=== PATIENT | female | born 1990 | race Two or more races ===

== ENCOUNTER 2016-09-22 16:31 | Emergency (ER) | payer BC ==
[~2016-09-22] VITALS: Ht 157.5 cm; Wt 86.4 kg
[2016-09-22 16:33] VITALS: BP 117/75
[2016-09-22] MEDS ORDERED: PREN1TAB60 PO (17:08)
[2016-09-22] MEDS ORDERED: DIPH28.33 TD (17:08)
[2016-09-22] MEDS ORDERED: FAMOTIDINE 20 MG TABLET PO ONE (18:30)
[2016-09-22] MEDS ORDERED: DIPHENHYDRAMINE 25 MG CAPSULE PO ONE (18:30)
[2016-09-22] MEDS ORDERED: FAMOTIDINE 20 MG TABLET ONE (18:37)
[2016-09-22] MEDS ORDERED: DIPHENHYDRAMINE 25 MG CAPSULE ONE (18:37)
== END 2016-09-22 19:24 | disposition home or self-care (01) ==
LOC: ED 18:32
DX: O26.893 Other specified pregnancy related conditions, third trimester (principal); Z3A.36 36 weeks gestation of pregnancy; R21 Rash and other nonspecific skin eruption
CPT/HCPCS: 99283; Q0163